=== PATIENT | female | born 2000 | race Caucasian/White ===

== ENCOUNTER 2021-01-10 22:44 | Emergency (ER) | payer OTHER ==
[~2021-01-10] VITALS: Ht 167.6 cm; Wt 147.4 kg
== END 2021-01-11 06:20 | disposition home or self-care (01) ==
LOC: EDBD 22:44 → ER1 22:44
DX: U07.1 COVID-19 (principal); J12.82 Pneumonia due to coronavirus disease 2019; E66.01 Morbid (severe) obesity due to excess calories
CPT/HCPCS: 71045; 99285; M0243; U0002